=== PATIENT | female | born 1960 | race Caucasian/White ===

== ENCOUNTER → 2025-03-05 | Outpatient (CLI) | payer MEDICARE ==
--- NOTE | 2025-03-05 21:38 | HMCSR ---
APPROVED REPORT EXAM: Two-dimensional and M-mode echocardiogram with Doppler and color Doppler. INDICATION ICD: Shortness of breath R06.02 2D Dimensions RVDd3.3 cmLVEF(%)60.0 (>50%)LVED Vol(simp.)49.0 mL IVSd0.8 (0.7-1.1cm)FS(%)31 %LVES Vol(simp.)22.0 mL LVDd3.4 (3.8-5.6cm)LA (2D)3.1 (1.6-4.0cm)LVEF(%, simp.)55 % PWd0.8 (0.7-1.1cm)Ao Root(2D)3.1 (2.0-3.7cm)LA ESV INDEX (BP)12.36 mL/m2 LVDs2.4 (2.5-4.0cm)LVOT diam2.0 (1.8-2.4cm) IVC diam1.5 cm M-Mode Dimensions EPSS0.6 cm LA (MM)3.0 (1.6-4.0cm) Ao Root(MM)2.8 (2.0-3.7cm) Aortic Valve AoV Vmax1.1 m/Addy Peak GR5.1 mmHgLVOT Vmax0.9 m/s AoV VTI0.2 mAo Mean GR2.9 mmHgLVOT VTI0.17 m BRYANT (VMAX)2.62 cm2AVA (VTI) 2.3 cm2 Mitral Valve MV E Vmax60.2 cm/sDECEL Rvci559 ms MV A Vmax75.2 cm/sP 1/2 T48 ms E/A ratio0.8MVA (PHT)4.6 cm2 TDI E/E' Medial9.1E/E' Lateral7.1 Medial E' Peak V6.61 cm/sLateral E' Peak V8.43 cm/s Pulmonary Valve PV Vmax0.7 m/sPV VTI0.12 mPV Mean GR1.1 mmHg PV Peak GR2.0 mmHg Tricuspid Valve TR Vmax2.2 m/sRVSP19.3 mmHg TR Peak GR19.4 mmHg Left Ventricle The left ventricle is normal size. There is normal LV segmental wall motion. There is normal left yaneli tricular wall thickness. LVEF is 65-70%. The left ventricular diastolic function is normal. Right Ventricle The right ventricle is normal size. The right ventricular systolic function is normal. Atria The left atrium size is normal. The right atrium size is normal. Aortic Valve The aortic valve is normal in structure. No aortic regurgitation is present. There is no aortic valvu lar stenosis. Mitral Valve The mitral valve is normal in structure. There is no mitral valve regurgitation noted. There is no mi tral valve stenosis. Tricuspid Valve The tricuspid valve is normal in structure. There is mild tricuspid valve regurgitation noted. Pulmonic Valve The pulmonary valve is normal in structure. There is no pulmonic valvular regurgitation. Great Vessels The aortic root is normal in size. The IVC is normal in size and collapses >50% with inspiration. Pericardium There is no pericardial effusion. Conclusion LVEF is 65-70%.
== END | disposition home or self-care (01) ==
LOC: RAH 13:39
PROVIDERS: ATTEND Internal Medicine Nephrology
DX: I07.1 Rheumatic tricuspid insufficiency (principal); R06.02 Shortness of breath
CPT/HCPCS: 93306